=== PATIENT | female | born 1955 | race Caucasian/White ===

== ENCOUNTER → 2017-07-28 | Day surgery (SDC) | payer OTHER ==
--- NOTE | 2017-07-27 17:16 | History & Physical Pre-Op ---
General Information and HPI History of Present Illness: Torito is a 62-year-old female with a long-standing and worsening complaint of painful hammertoes involving the fourth and fifth digits right foot. The patient has undergone an extended course of conservative care, including shoe gear and activity modification, rest, immobilization and courses of NSAIDs. None of this is yielded her any significant relief. The patient presents today for preoperative surgical consultation. Allergies/Medications Allergies: Coded Allergies: No Known Allergies (07/24/17) Home Med list Aspirin (Ecotrin*) 81 MG TABLET.DR 1 TAB PO DAILY HEART/BLOOD (Reported) Empagliflozin (Jardiance) 25 MG TABLET 1 TAB PO DAILY DM (Reported) Ergocalciferol (Vitamin D2) (Vitamin D2) 50,000 UNIT CAPSULE 1 CAP PO Q2W SUPPLEMENT (Reported) Levothyroxine Sodium (Levoxyl) 75 MCG TABLET 1 TAB PO DAILY AC THYROID ( Reported) Metformin HCl 500 MG TABLET 4 TAB PO QAM DM (Reported) Nebivolol HCl (Bystolic) 5 MG TABLET 1 TAB PO DAILY HEART (Reported) Rosuvastatin Calcium (Crestor) 5 MG TABLET 1 TAB PO AD CHOLESTEROL (Reported) Vitamin B Complex 1 EACH CAPSULE 1 CAP PO DAILY SUPPLEMENT (Reported) Past History Medical History Cardiovascular: hypertension, hyperlipidemia Endocrine: diabetes, hypothyroidism Surgical History Pertinent Surgical History: (Knee surgery) Review of Systems Review of Systems: Unremarkable except for that notedno Exam & Diagnostic Data Physical Exam: Lungs clear bilaterally. Heart sounds rate and rhythm regular. Lower extremity physical exam demonstrates intact pedal pulses bilaterally. Pulses dorsalis pedis and posterior tibial arteries are palpable bilaterally. Patient without any sensory motor deficits. Deep tendon reflexes grossly intact. Isn't noted to have severe and pain with palpation to the proximal interphalangeal joints of the fourth and fifth digits right foot. Assessment/Plan Assessment/Plan: Painful hammertoes right foot. A lengthy discussion reviewing both surgical and conservative options was held the patient at bedside and the patient elected to go forward with surgery despite the risks. As Ranked By This Provider Problem List: 1. Other hammer toe(s) (acquired), right foot Attending MD Review Statement Attending Statement Attending MD Statement: examined this patient
[~2017-07-28] VITALS: Ht 154.9 cm; Wt 80.3 kg
[~2017-07-28] MED LIST: ASPIRIN EC81 M1 PO; BYSTOLIC5 M1 PO; CRESTOR5 M1 PO; JARDIANCE25 M1 PO; LEVOXYL75 MCG PO; METFORMIN HCL500 M3 PO; VITAMIN B COMP1 EACH PO; VITAMIN D250000 UNIT PO
--- NOTE | 2017-07-28 11:46 | Operative Report ---
Operative/Inv Procedure Report Surgery Date: 07/28/17 Name of Procedure: 1 arthroplasty fourth toe right foot 2 arthroplasty fifth toe right foot 3 intraoperative administration of ankle block anesthesia Pre-Operative Diagnosis: 1 hammertoe fourth toe right foot 2 hammertoe fifth toe right foot Post-Operative Diagnosis: The same Estimated Blood Loss: scant Surgeon/Air Route Controller: Mario TREADWELL,Anton Guidry DPM Anesthesia: moderate sedation, block Operative/Procedure Note Note: After obtaining informed consent the patient was brought to the operating room and placed on the operating table in the supine position. The patient was then securely fastened to the operating table utilizing safety belt. Her Mr. amado sedation, 10 mL of 0.5% Marcaine plain was infiltrated about the patient's right ankle. A well-padded ankle tourniquet was placed about the patient's right lower extremity. 2 g of Ancef were delivered intravenously times one dose. The right foot was then scrubbed, prepped and draped in usual aseptic manner. Right lower extremity was elevated to examine to limb, at which point the ankle tourniquet was inflated 250 mmHg. Attention directed dorsal aspect the right foot, where converging semielliptical incisions centered over the proximal interphalangeal joints of the fourth fifth digits were marked out a skin marker. The skin was incised with 15 blade. The ellipses of skin were freed and passed from the operative field. Transverse tenotomies were then performed exposing the heads of the proximal phalanges of the fourth fifth digits. These were then removed sagittal bone saw. The extensor tendon was then reapproximated 4-0 Vicryl. Skin edges reapproximated 4-0 nylon. Incision dressed with Xeroform, 4 x 4's Kerlix and an Vivek wrap. The patient was noted tolerate both procedure and anesthesia well and the patient was transported from the operating room to recovery vital signs stable best assess intact all digits right foot.
== END ==
LOC: STS 02:37
DX: M20.41 Other hammer toe(s) (acquired), right foot (principal); E11.9 Type 2 diabetes mellitus without complications; Z79.84 Long term (current) use of oral hypoglycemic drugs; I10 Essential (primary) hypertension; E03.9 Hypothyroidism, unspecified
CPT/HCPCS: J0690; J2001; J2250